=== PATIENT | male | born 1985 | race Two or more races ===

== ENCOUNTER 2024-05-10 22:15 | Emergency (ER) | payer MEDICAID, OTHER ==
[~2024-05-10] VITALS: Ht 175.3 cm; Wt 97.8 kg
[2024-05-10] MEDS: ACETAMINOPHEN 325 MG TAB PO ONE (22:25)
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
[2024-05-10] MEDS ORDERED: IBUP-1455 PO (23:23)
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
[2024-05-11 00:25] VITALS: BP 128/77; PULSE 76; RESP 18; TEMP 98.6; O2SAT 97
== END 2024-05-11 00:48 | disposition home or self-care (01) ==
LOC: ER 22:15
DX: S39.012A Strain of muscle, fascia and tendon of lower back, initial encounter (principal); E66.9 Obesity, unspecified; V89.2XXA Person injured in unspecified motor-vehicle accident, traffic, initial encounter; Y93.89 Activity, other specified; Y92.410 Unspecified street and highway as the place of occurrence of the external cause; Y99.8 Other external cause status
CPT/HCPCS: 72070